=== PATIENT | male | born 1960 | race Caucasian/White ===

== ENCOUNTER 2024-12-02 08:19 | Day surgery (SDC) | payer MEDICARE, OTHER | END 2024-12-02 08:56 | disposition home or self-care (01) | LOC: DS 08:19 | PROVIDERS: ATTEND Dentist Oral and Maxillofacial Surgery | DX: S02.401K Maxillary fracture, unspecified side, subsequent encounter for fracture with nonunion (principal); Z53.8 Procedure and treatment not carried out for other reasons; E11.22 Type 2 diabetes mellitus with diabetic chronic kidney disease; I13.10 Hypertensive heart and chronic kidney disease without heart failure, with stage 1 through stage 4 chronic kidney disease, or unspecified chronic kidney disease; N18.4 Chronic kidney disease, stage 4 (severe); E78.5 Hyperlipidemia, unspecified; I25.2 Old myocardial infarction; Z79.899 Other long term (current) drug therapy; Z98.890 Other specified postprocedural states; X58.XXXD Exposure to other specified factors, subsequent encounter ==